=== PATIENT | female | born 1970 | race Caucasian/White ===

== ENCOUNTER → 2017-02-16 | Outpatient (CLI) | payer OTHER ==
[~2017-02-16] MED LIST: AMITRIPTYLINE H75 MG PO; CRESTOR10 MG PO; DEXILANT60 MG PO; ESTRACE2 M1 PO; FIORINAL 50-321 EACH PO; GABAPENTIN300 M2 PO; GLUCOMETER; HUMALOG100 U/M2 SQ; LACTULOSE10 G/15 ML PO; LANTUS100 U/ML SQ; LEXAPRO20 MG PO; LISINOPRIL20 MG PO; MAGNESIUM250 M1 PO; NADOLOL20 MG PO; NOVOLOG100 U/M2 SUBQ; ZETIA PO; ZYRTEC10 M2 PO; [UNRECOGNIZED DRUG - SUPPLY]
[2017-02-16 15:37] LABS: HEMATOCRIT 35.9 % (35.0-45.0); HEMOGLOBIN 12.4 gm/dL (12.0-16.0); MEAN CELL VOLUME 89.9 FL (83-96); MEAN CORPUSCULAR HEMOGLOBIN 31.1 PG (28-34); MEAN CORPUSCULAR HGB CONC 34.6 g/dL (30-36); MEAN PLATELET VOLUME 8.1 FL (6.5-11.5); RED BLOOD COUNT 3.99 X10e (3.90-5.30); WHITE BLOOD COUNT 4.4 X10e3 (4.0-10.5)
[2017-02-16 16:14] LABS: ALBUMIN SERUM 3.1 g/dL (3.5-5.0); BILIRUBIN,TOTAL 0.9 mg/dL (0.2-2.0); BUN/CREATININE RATIO 14.28; CALCIUM SERUM 8.9 mg/dL (8.4-10.2); CREATININE SERUM 0.7 mg/dL (0.6-1.4); GLOM FILT RATE Estimated 103.9 mL/min (>60); POTASSIUM 3.7 mmol/L (3.5-5.1); PROTEIN TOTAL SERUM 7.3 g/dL (6.0-8.3)
== END | disposition home or self-care (01) ==
LOC: SLAB 15:19
PROVIDERS: Internal Medicine
DX: K75.81 Nonalcoholic steatohepatitis (NASH) (principal); K74.60 Unspecified cirrhosis of liver
CPT/HCPCS: 36415; 80053; 82105; 82140; 85027